=== PATIENT | female | born 1950 | race Caucasian/White ===

== ENCOUNTER 2023-03-14 22:01 | Emergency (ER) | payer MEDICARE ==
[2023-03-15] MEDS ORDERED: LIDOCAINE/EPINEPHR/TETRACAINE 5 ML BOTTLE TOPICAL ONE (00:21)
[2023-03-15] MEDS ORDERED: DIPH,PERTUS(ACELL)TETVAC-LF 0.5 ML VIAL IM ONE (00:21)
--- NOTE | 2023-03-15 02:38 | XR ---
EXAMINATION TYPE: XR shoulder complete RT, XR chest 2V DATE OF EXAM: 03/15/2023 1:10 AM INDICATION: Patient age:Female; 72 years old; Reason for study: Pain, trauma; COMPARISON: Chest radiograph the same day. TECHNIQUE: The right shoulder was examined in AP, internally rotated and scapular Y projections. . Frontal and lateral views of the chest were obtained. FINDINGS: No acute fracture or dislocation. Mild soft tissue swelling at the AC joint. Widening of the AC joint with slight elevation of the distal clavicle relation to the acromion. Senescent parenchymal change. Cardiomediastinal silhouette is within normal limits. No focal consolidation, pneumothorax, or pleur al effusion. IMPRESSION: 1. No acute fracture. 2. Grade 3 right AC joint injury.
--- NOTE | 2023-03-15 02:56 | CT ---
EXAMINATION TYPE: CT brain cspine wo con CT DLP: 1398 mGycm, Automated exposure control for dose reduction was used. DATE OF EXAM: 03/15/2023 1:13 AM COMPARISON: None.. CLINICAL INDICATION:Female, 72 years old with history of Trauma; TECHNIQUE: Brain: Multiple axial CT images of the brain were obtained without IV contrast. Cspine: Axial CT images from the skull base to the inferior aspect of T2 we obtained without intraven ous contrast. Coronal and sagittal reformatted images were also reviewed. FINDINGS: Brain: Extra-axial spaces: No abnormal extra-axial fluid collections. Ventricular system: Within normal limits Cerebral parenchyma: No acute intraparenchymal hemorrhage or mass effect. The staton-white junction is well differentiated. Cerebellum: Unremarkable. Mass effect: No evidence of midline shift. Intracranial vasculature: unremarkable Soft tissues: Right frontal scalp laceration. Calvarium/osseous structures: No depressed skull fracture. Post surgical changes of the maxilla and m andible. Paranasal sinuses and mastoid air cells: Mild scattered mucosal thickening and or secretions. Visualized orbits: Orbital contents are intact. Cervical spine: Fracture: None. Osseous structures: Multilevel degenerative disc disease changes with endplate spurring and disc oste ophyte complex's. Multilevel facet arthropathy. Vertebral alignment: Degenerative grade 1 anterolisthesis of C4 on C5. Spinal canal/Neural Foramina: Disc osteophyte complexes at C3-C4, C4-C5, C5-C6, and C6-C7 with at [address] mild spinal canal stenosis. Facet joint uncovertebral joint arthropathy scattered throughout the c ervical spine with varying degrees of neural foraminal stenosis. Neck soft tissues: Prevertebral soft tissues are within normal limits. Other: The airway is patent. The lung apices are clear. IMPRESSION: 1. No acute intracranial process. 2. Right frontal scalp laceration. 3. No evidence of cervical spine fracture. 4. Mild to moderate multilevel degenerative disc disease.
--- NOTE | 2023-03-15 03:13 | ED ---
General Adult HPI - General Chief complaint: Fall Stated complaint: Fall, Head Injury Time Seen by Provider: 03/14/23 23:32 Source: patient Mode of arrival: ambulatory Limitations: no limitations - History of Present Illness Initial comments: This is a 72-year-old female with a past medical history including Graves' disease presents emergency department after a closed head injury from a fall. The patient stated that she tripped on her deck and landed with her head onto dirt. The patient stated that she suffered a laceration to the right anterior scalp. The patient also had complaints of right shoulder pain. The patient denied LOC and denied any other trauma. The patient was in laboratory on scene. The patient stated that because the pain was continued she came to the emergency department for evaluation. The patient denied any other acute pain or complaint at this time. - Related Data Previous Rx's Medication Instructions Recorded Naproxen [EC-Naprosyn] 500 mg PO BID #30 tab 03/15/23 methocarbamoL [Robaxin-750] 750 mg PO TID #30 tab 03/15/23 Allergies Allergy/AdvReac Type Severity Reaction Status Date / Time No Known Allergies Allergy Verified 03/14/23 22:08 Review of Systems ROS Statement: Those systems with pertinent positive or pertinent negative responses have been documented in the HPI. ROS Other: All systems not noted in ROS Statement are negative. Past Medical History Past Medical History: Hyperlipidemia, Hypertension, Thyroid Disorder History of Any Multi-Drug Resistant Organisms: None Reported Past Surgical History: Joint Replacement Past Psychological History: No Psychological Hx Reported Smoking Status: Never smoker Past Alcohol Use History: None Reported Past Drug Use History: None Reported General Exam Limitations: no limitations General appearance: alert, in no apparent distress Head exam: Present: normocephalic, normal inspection, other (Abrasion, 2, 1cm l acerations noted to the right anterior scalp) Eye exam: Present: normal appearance, PERRL Pupils: Present: normal accommodation ENT exam: Present: normal exam, normal oropharynx, mucous membranes moist Neck exam: Present: normal inspection, full ROM Respiratory exam: Present: normal lung sounds bilaterally Cardiovascular Exam: Present: regular rate, normal rhythm, normal heart sounds GI/Abdominal exam: Present: soft, normal bowel sounds Extremities exam: Present: normal inspection, other (Decreased ROM of R shoulder with TTP over the superior aspect) Back exam: Present: normal inspection, full ROM Neurological exam: Present: alert, oriented X3, CN II-XII intact Psychiatric exam: Present: normal affect, normal mood Skin exam: Present: warm, dry Course Vital Signs 03/14/23 03/15/23 22:02 02:00 Temperature 98.8 F Pulse Rate 73 63 Respiratory 18 18 Rate Blood Pressure 168/98 138/77 O2 Sat by Pulse 100 97 Oximetry Procedures - Laceration Laceration #1 Consent Obtained: verbal consent Indication: laceration Site: scalp Size (cm): 1 (2 lacerations, 1 cm each) Description: linear Depth: simple, single layer Pre-repair: wound explored, irrigated extensively Number of Sutures: 2 Patient Tolerated Procedure: well Additional Comments: jacob Medical Decision Making - Medical Decision Making Was pt. sent in by a medical professional or institution (, PA, TIN STACKER, urgent care, hospital, or skilled nursing...) When possible be specific @ -No Did you speak to anyone other than the patient for history (EMS, parent, family, police, friend...)? What history was obtained from this source @ -No Did you review nursing and triage notes (agree or disagree)? Why? @ -I reviewed and agree with nursing and triage notes Were old charts reviewed (outside hosp., previous admission, EMS record, old EKG, old radiological studies, urgent care reports/EKG's, skilled nursing records)? Report findings @ -No old charts were reviewed Differential Diagnosis (chest pain, altered mental status, abdominal pain women, abdominal pain men, vaginal bleeding, weakness, fever, dyspnea, syncope, headache, dizziness, GI bleed, back pain, seizure, CVA, palpatations, mental health)? @ -Closed head injury, concussion, scalp laceration, shoulder fracture, shoulder strain EKG interpreted by me (3pts min.). @ -None X-rays interpreted by me (1pt min.). @ -X-ray and shoulder x-ray were obtained and were interpreted by myself showing no acute fracture or dislocation of the chest. There was a grade 3 right before meals joint injury. CT interpreted by me (1pt min.). @ -CT of the head and neck was obtained and was interpreted by myself showing no acute intracranial process. There was a right frontal scalp laceration. There was no evidence of cervical spine fracture. There was mild to moderate multilevel degenerative disc disease. U/S interpreted by me (1pt. min.). @ -None done What testing was considered but not performed or refused? (CT, X-rays, U/S, labs)? Why? @ -None What meds were considered but not given or refused? Why? @ -None Did you discuss the management of the patient with other professionals (professionals i.e. Dr., PA, TIN STACKER, lab, RT, psych nurse, social service liaison, mattress and boxsprings supervisor, teacher, project control officer, case checker)? Give summary @ -No Was smoking cessation discussed for >3mins.? @ -No Was critical care preformed (if so, how long)? @ -No Were there social determinants of health that impacted care today? How? (Homelessness, low income, unemployed, alcoholism, drug addiction, transportation, low edu. Level, literacy, decrease access to med. care, retirement, rehab)? @ -No Was there de-escalation of care discussed even if they declined (Discuss DNR or withdrawal of care, Hospice)? DNR status @ -No What co-morbidities impacted this encounter? (DM, HTN, Smoking, COPD, CAD, Cancer, CVA, ARF, Chemo, Hep., AIDS, mental health diagnosis, sleep apnea, morbid obesity)? @ -Graves Disease Was patient admitted / discharged? Hospital course, mention meds given and route, prescriptions, significant lab abnormalities, going to OR and other pertinent info. @ -The patient was seen and evaluated emergency department. Physical exam, the patient was resting in bed without any acute distress. Vital signs admission were stable. Due to the nature the patient's complaints, imaging including CT head and CT C-spine as well as a chest x-ray and shoulder x-ray were obtained. All imaging was negative however there is a grade 3 right before meals joint injury. The patient was placed in a sling. The patient's scalp laceration was also fixed with 2 jacob. The patient continued to remain stable and was stable for discharge home. The patient was advised to follow-up with orthopedic surgery for follow-up for her grade 3 right before meals joint injury. The patient was also advised to follow-up with her primary care physician for further workup and evaluation. The patient was agreeable to this and all of her questions were answered. The patient was discharged home in stable condition. Undiagnosed new problem with uncertain prognosis? @ -No Drug Therapy requiring intensive monitoring for toxicity (Heparin, Nitro, Insul in, Cardizem)? @ -No Were any procedures done? @ -No Diagnosis/symptom? @ -Fall, closed head injury, scalp laceration, grade 3 right AC joint injury Acute, or Chronic, or Acute on Chronic? @ -Acute Uncomplicated (without systemic symptoms) or Complicated (systemic symptoms)? @ -Uncomplicated Side effects of treatment? @ -No Exacerbation, Progression, or Severe Exacerbation? @ -No Poses a threat to life or bodily function? How? (Chest pain, [place], [place], pneumonia, PE, COPD, DKA, ARF, appy, cholecystitis, CVA, Diverticulitis, Homicidal, Suicidal, threat to staff... and all critical care pts) @ -No Disposition Clinical Impression: Closed head injury, Scalp laceration, AC joint dislocation Disposition: HOME SELF-CARE Condition: Stable Instructions (If sedation given, give patient instructions): Fall Prevention for Older Adults (ED), Head Injury (DC), Staple Care (ED), Acromioclavicular Separation (ED) Prescriptions: Naproxen [EC-Naprosyn] 500 mg PO BID #30 tab methocarbamoL [Robaxin-750] 750 mg PO TID #30 tab Is patient prescribed a controlled substance at d/c from ED?: No Referrals: None,Stated [Primary Care Provider] - 1-2 days Eladio Lee MD [STAFF PHYSICIAN] - 1-2 days Time of Disposition: 03:00
[2023-03-15 03:28] VITALS: BP 130/77; PULSE 77; RESP 16; TEMP 97.8
== END 2023-03-15 03:42 | disposition home or self-care (01) ==
LOC: EC 22:01
DX: S43.121A Dislocation of right acromioclavicular joint, 100%-200% displacement, initial encounter (principal); S01.01XA Laceration without foreign body of scalp, initial encounter; I10 Essential (primary) hypertension; Z23 Encounter for immunization; W01.0XXA Fall on same level from slipping, tripping and stumbling without subsequent striking against object, initial encounter
CPT/HCPCS: 12001; 70450; 71046; 72125; 90471; 90715; 99284